=== PATIENT | female | born 1940 | race Caucasian/White ===

== ENCOUNTER → 2020-12-25 14:17 | Outpatient (CLI) | payer MEDICARE, OTHER, SELFPAY | PROVIDERS: PCP Internal Medicine; Visit Provider Specialist | DX: G47.33 Obstructive sleep apnea (adult) (pediatric) (principal) | CPT/HCPCS: G0399 ==

== ENCOUNTER 2024-09-10 16:50 | Emergency (ER) | payer MEDICARE, OTHER, SELFPAY ==
[2024-09-10 16:57] VITALS: BP 111/68; PULSE 118; RESP 18; TEMP 36.6; O2SAT 100; BMI 24.6
--- NOTE | 2024-09-10 17:29 | ED_ITS ---
<Statement entered by Chiqui Ny MD - 09/10/24 22:52> I was consulted by the MEGAN, and we discussed the complexity of the problems being addressed. I approved the treatment and management plan for this patient's care in the emergency department, thus performing a substantive portion of the medical decision making. Chiqui Ny MD, RON, FACEP Discharge Plan Disposition Patient Disposition: Home, Self-Care Condition: Good Prescriptions Prescriptions: New metoprolol succinate 100 mg tablet extended release 24 hr 100 mg PO DAILY Qty: 30 0RF amoxicillin-pot clavulanate 875-125 mg tablet 1 tab PO BID Qty: 20 0RF ofloxacin 0.3 % drops 10 drp otic (ear) BID 14 Days Qty: 10 0RF No Action omeprazole 20 mg capsule,delayed release(DR/EC) 20 mg PO DAILY insulin glargine [Lantus U-100 Insulin] 100 unit/mL solution 20 unit SQ HS Jardiance 10 mg tablet 10 mg PO DAILY valsartan 80 mg tablet 80 mg PO DAILY potassium chloride 20 mEq tablet,ER particles/crystals PO Patient Comments: TAKE ONE TABLET BY MOUTH ONCE DAILY magnesium oxide 400 mg (241.3 mg magnesium) tablet 400 mg PO DAILY bumetanide 0.5 mg tablet 0.5 mg PO DAILY rivaroxaban 20 mg tablet See Rx Instructions PO DAILY Rx Instructions: 15 mgs orally daily; metoprolol succinate 50 mg tablet extended release 24 hr 50 mg PO DAILY ascorbate calcium (vitamin C) 500 mg tablet 500 mg PO BID insulin aspart U-100 [Novolog FlexPen U-100 Insulin] 100 unit/mL (3 mL) insulin pen SQ Rx Instructions: SLIDING SCALE cholecalciferol (vitamin D3) 125 mcg (5,000 unit) capsule 125 mcg PO DAILY Zyrtec 10 mg capsule 10 mg PO DAILY PRN carbidopa-levodopa 25-100 mg tablet extended release 1 tab PO TID Qty: 270 3RF Rx Instructions: 1 tablet p.o. 3 times daily quetiapine [Seroquel] 25 mg tablet See Rx Instructions .ROUTE .COMPLEX Qty: 270 3RF Rx Instructions: 1 tab in the a.m. and 2 tablets at 5 PM memantine 10 mg tablet 10 mg PO DAILY Qty: 90 3RF Referrals Follow up/Referrals: Provider,Referral, [Primary Care Provider] - See instructions Activity Restrictions/Add. Instructions Additional Instructions/Restrictions: We have sent a new dosage of your metoprolol to your pharmacy. Your metoprolol will be 100 mg. Please do not take the 50 mg tablet take the 100 mg until you see cardiology. Please call tomorrow to make your cardiology follow-up appointment. Please keep your appointment with ear nose and throat in [place]. Please utilize the eardrops and oral medication until seen by ear nose and throat. If you have any continued new or worsening signs or symptoms follow-up with your PCP return to the ER as needed. Clinical Impressions Clinical Impression: Atrial fibrillation with rapid ventricular response, Perforation of tympanic membrane in adult Instructions Patient Instructions: DI for Tympanic Membrane Perforation-Adult Print Language Print Language: Chinese Discharge ED Provider: Chiqui Ny General Adult HPI General Chief complaint: Ear Stated complaint: BP is low, heart rate elevated, right ear bleeding Time Seen by Provider: 09/10/24 17:29 Mode of Arrival: Wheelchair Source of Information: Relative Description of Symptoms (Recalled from ER Triage Doc. by RN): Pt presents with concerns for low bp, elevated HR, and blood to her right ear. Per family they were at a neurology appointment and her bp was 96/50 and initially her HR was in the 150s but came down to 124. the blood to the right ear started 2 days ago, which is the main concern per family History of Present Illness HPI narrative: Patient presents from neurology clinic for low blood pressure and high heart rate. Patient has a long standing history of Parkinson's that may be Lewy body dementia suspected by the neurologist obstructive sleep apnea not treated with CPAP chronic A-fib with cardiac pacemaker on . Patient was following up routinely with neurology today and they noted that her blood pressure was low in the 90s and her heart rate was elevated in the 150s. Patient is asymptomatic. Additionally they report on Tuesday patient was found to have blood coming out of her right ear and there was a report of a tick potentially but no tick body was found. Patient has no pain currently but does have diminished hearing in that ear. She denies any fever chills hemoptysis hematochezia melena nausea vomiting diarrhea. Related Data Home Medications ?Medication ?Instructions ?Recorded ?Confirmed omeprazole 20 mg capsule,delayed 20 mg PO DAILY 12/06/19 09/10/24 release metoprolol succinate 50 mg 50 mg PO DAILY 12/25/20 09/10/24 tablet,extended release 24 hr ascorbate calcium (vitamin C) 500 500 mg PO BID 03/24/21 09/10/24 mg tablet insulin aspart U-100 100 unit/mL SQ 03/25/22 09/10/24 (3 mL) subcutaneous pen (Novolog FlexPen U-100 Insulin aspart) empagliflozin 10 mg tablet 10 mg PO DAILY 09/23/22 09/10/24 (Jardiance) cholecalciferol (vitamin D3) 125 125 mcg PO DAILY 01/05/23 09/10/24 mcg (5,000 unit) capsule insulin glargine 100 unit/mL 20 unit SQ HS 05/11/23 09/10/24 subcutaneous solution (Lantus U-100 Insulin) rivaroxaban 20 mg tablet See Rx Instructions PO DAILY 05/11/23 09/10/24 valsartan 80 mg tablet 80 mg PO DAILY 05/11/23 09/10/24 bumetanide 0.5 mg tablet 0.5 mg PO DAILY 09/13/23 09/10/24 magnesium oxide 400 mg (241.3 mg 400 mg PO DAILY 09/13/23 09/10/24 magnesium) tablet potassium chloride 20 mEq meq PO 09/13/23 09/10/24 tablet,extended release(part/cryst) cetirizine 10 mg capsule (Zyrtec) 10 mg PO DAILY PRN 09/10/24 09/10/24 Previous Rx's ?Medication ?Instructions ?Recorded amoxicillin 875 mg-potassium 1 tab PO BID #20 tabs 09/10/24 clavulanate 125 mg tablet carbidopa ER 25 mg-levodopa 100 mg 1 tab PO TID Parkinsonian syndrome 09/10/24 tablet,extended release #270 tabs memantine 10 mg tablet 10 mg PO DAILY #90 tabs 09/10/24 metoprolol succinate 100 mg 100 mg PO DAILY #30 tabs 09/10/24 tablet,extended release 24 hr ofloxacin 0.3 % ear drops 10 drp otic (ear) BID 14 days #10 09/10/24 mL quetiapine 25 mg tablet (Seroquel) See Rx Instructions .Route 09/10/24 .COMPLEX #270 tabs Allergies Allergy/AdvReac Type Severity Reaction Status Date / [facility] Allergy Intermediate Vomiting Verified 09/10/24 12:00 metformin Allergy Mild Vomiting Verified 09/10/24 12:00 [facility] Disclaimer: The information contained in this section may have been updated after the patient was seen, as this information can be updated by other users. Medical History Parkinsonian syndrome Suspected Lewy body disease Hypersomnolence disorder MELODY (obstructive sleep apnea) Unable to tolerate CPAP or oral appliance. Currently on positional therapy only Pacemaker Subcortical dementia Moderate subcortical dementia History of cholecystitis Surgical History History of cholecystectomy Family History Other Cancer Coronary artery disease Diabetes Heart attack Hyperlipidemia Hypertension Stroke Social History Smoking Status: Never smoker alcohol intake: never substance use type: denies use current occupational status: retired Travel in the last 8 weeks: None household members: family housing: house Other Medical History Have you received the Pneumonia Vaccine: No ROS Obtained: Yes Systems reviewed as appropriate & no additional complaints except as documented Physical Exam General General appearance: alert and in no apparent distress Respiratory Respiratory exam: Present normal lung sounds bilaterally Cardiovascular Cardiovascular exam: Present tachycardia and irregular rhythm Neurological Exam Neurological exam: Present alert, oriented X3 and CN II-XII intact Psychiatric Psychiatric exam: Present normal affect and normal mood Skin Skin exam: Present warm, dry and normal color Medical Decision Making Medical Records Medical records reviewed: Yes I reviewed the patient's medical records. Screening: Per USPSTF and CDC recommendations, given the prevalence of disease in our region, it is our hospital?s policy to screen for HIV and viral Hepatitis for all patients aged 18 and over and those with ongoing risk factors. [place]em Inquiry Pt receiving controlled substance: No Vital Signs: 09/10/24 16:57 09/10/24 18:30 09/10/24 20:45 Temperature 98 F Temperature Source Oral Pulse Rate 118 H 117 H Pulse Rate [Right] 118 H Respiratory Rate 18 Blood Pressure 113/76 109/67 L Blood Pressure [Right Arm] 111/68 Blood Pressure Mean [Right Arm] 82 Blood Pressure Source [Right Arm] Automatic Cuff Blood Pressure Position [Right Arm] Sitting 02 Sat by Pulse Oximetry 100 99 99 Lab Data Lab results reviewed: Yes I reviewed the patient's lab results. Lab Results 09/10/24 18:47: WBC 8.0, RBC 4.38, Hgb 11.5 L, Hct 36.0 L, MCV 82.2, MCH 26.3 L, MCHC 31.9, RDW 14.5, Plt Count 262, MPV 10.3, Neut % (Auto) 65.8, Lymph % (Auto) 21.8, [place] % (Auto) 10.2 H, Eos % (Auto) 1.4, Baso % (Auto) 0.4, Neut # (Auto) 5.3, Lymph # (Auto) 1.8, [place] # (Auto) 0.8, Eos # (Auto) 0.1, Baso # (Auto) 0.0, Sodium 135 L, Potassium 4.2, Chloride 96 L, Carbon Dioxide 26, Anion Gap 17.2 H, BUN 28 H, Creatinine 1.40 H, Estimated Creat Clear 26, Estimated GFR 36 L, Est GFR ( Amer) 43 L, Glucose 251 H, Lactate 1.9, Calcium 9.0, Magnesium 2.0, Total Bilirubin 0.7, AST 28, ALT 11 L, Alkaline Phosphatase 113, Total Protein 8.6 H, Albumin 4.4, Globulin 4.2 H, Albumin/Globulin Ratio 1.0 L 09/10/24 18:47 09/10/24 18:47 Orders (Tests/Meds): ED MEDICATIONS Generic Name Dose Route Start Last Admin Trade Name Freq PRN Reason Stop Dose Admin Sodium Chloride 1,000 mls @ 250 mls/hr 09/10/24 18:11 09/10/24 19:31 Sod Chlor 0.9% 1000ml Bag IV 09/10/24 22:10 250 mls/hr .Q4H ONE Administration Ofloxacin 0 ml 09/10/24 21:00 09/10/24 19:54 Ofloxacin 0.3% Otic Solution 5ml OT 10/10/24 20:59 10 drp BID DIOR Administration Discontinued Medications Generic Name Dose Route Start Last Admin Trade Name Freq PRN Reason Stop Dose Admin Amoxicillin/Clavulanate Potassium 1 each 09/10/24 19:29 09/10/24 19:53 Amoxicillin/Clavulanate Potassium 875/125mg Tablet PO 09/10/24 19:30 1 each ONCE ONE Administration Metoprolol Tartrate 5 mg 09/10/24 19:21 09/10/24 19:31 Metoprolol Tartrate 5mg/5ml Vial IV 09/10/24 19:22 5 mg ONCE ONE Administration ORDERS Category Date Time Status XR chest portable Stat Exams 09/10/24 18:10 Completed CBC w/Auto Diff [Complete Blood Count Auto Diff] Stat Lab 09/10/24 18:47 Completed CMP [Comprehensive Metabolic Panel] Stat Lab 09/10/24 18:47 Results Lactic Acid Stat Lab 09/10/24 18:47 Completed Magnesium Stat Lab 09/10/24 18:47 Results Trop I [Troponin I] Stat Lab 09/10/24 18:47 Results Troponin I Q3H Lab 09/10/24 21:15 Ordered Troponin I Q3H Lab 09/11/24 00:15 Ordered UA [Urinalysis and Microscopic] Stat Lab 09/10/24 18:12 Ordered Blood Culture Stat Micro 09/10/24 18:45 Received Medical Decision Narrative: In summary patient is a 83-year-old female who presents to the emergency department for evaluation of low blood pressure and high heart rate and bleeding from her right ear. Patient is initially normotensive on arrival here with a blood pressure of 111/68 however she is tachycardic at 118 with what appears to be A-fib RVR on the bedside monitor breathing 18 times a minute satting at 100% on room air upon arrival, afebrile at 98. Physical exam is remarkable for an external auditory canal that is full of dried blood. Patient has diminished hearing in that ear. No signs of visible trauma currently. I am unable to appreciate the tympanic membrane currently. Examination of the breath sounds visibly clear and equal bilateral to the bases with adventitious sounds heart rate is rapid irregularly irregular rate and rhythm no murmurs heard. No dependent edema noted. Patient is awake and interactive no focal neurologic deficits. She does appear to be weak currently but moves all 4 extremities. Differential diagnosis includes A-fib RVR versus external auditory canal trauma versus perforated tympanic membrane versus electrolyte abnormality etc. Initial workup will be conducted with hematologic labs twelve-lead EKG plain film chest x-ray urinalysis. Initial interventions include crystalloid bolus 5 mg labetalol IV push and ear irrigation with warm water. Initial workup reviewed by me shows her hematologic labs are nonactionable currently with exception of a slightly elevated creatinine of 1.4 and a GFR diminished at 36 do not have a previous reference to know if this is new or chronic. Thank him chest x-ray shows no acute processes.. Upon repeat evaluation after right ear canal irrigation I am able to appreciate what appears to be a perforated tympanic membrane on the right. No evidence of purulence. Patient was refractory to push dose of labetalol however after fluid bolus heart rates come down under 120 and blood pressure 109/67.. Given this I had a shared decision-making discussion with the patient's daughter who is her power of engineering mechanic about her GARCIA presentation and management. They are comfortable going home and changing her metoprolol dose to 100 mg twice daily with close follow-up with cardiology as patient is asymptomatic and does not know that she is having a rapid heart rate. They will get a vital sign monitor so they can know what her heart rate and oxygen saturation are.. They will hold the 50 mg metoprolol dose. Patient was given a prescription for Augmentin and ofloxacin drops with first doses given here. Patient already has a appointment with ear nose and throat in [place] where she lives. If she has any continued new or worsening signs or symptoms she will follow-up closely with her PCP return to the closest ER as needed. Critical Care Critical Care Time Critical Care Time: Yes Attestation: On 09/10/24, the high probability of a clinically significant, sudden or life threatening deterioration of the following system(s) required my full and direct attention, intervention and personal management. The time I documented below is in addition to time spent performing reported procedures but includes the following listed in this critical care notation. Total Time Total Critical Care Time: 35
--- NOTE | 2024-09-10 18:10 | XR_ITS ---
PROCEDURE INFORMATION: Exam: XR Chest Exam date and time: 09/10/2024 6:22 PM Age: 83 years old Clinical indication: Other: Tachycardia TECHNIQUE: Imaging protocol: Radiologic exam of the chest. Views: 1 view. COMPARISON: No relevant prior studies available. FINDINGS: Lungs: Unremarkable. No consolidation. Pleural spaces: Unremarkable. No pleural effusion. No pneumothorax. Heart/Mediastinum: Unremarkable. No cardiomegaly. Bones/joints: Unremarkable. IMPRESSION: No acute findings.
--- NOTE | 2024-09-10 18:21 | PC.NURSE ---
XR AT BEDSIDE
[2024-09-10 18:30] VITALS: BP 113/76; PULSE 118; O2SAT 99
--- NOTE | 2024-09-10 18:42 | ECG_ITS ---
APPROVED REPORT Exam: Resting ECG HR:117 bpm ECG Measurements Heart Rate 117 AXES QRSd 117 QRS -12 QT 315 T 165 QTc 385 Conclusion ATRIAL FLUTTER/TACHYCARDIA WITH RAPID VENTRICULAR RESPONSE LOW QRS VOLTAGE IN PRECORDIAL LEADS [QRS DEFLECTION < 1.0 mV IN CHEST LEADS] POSSIBLE ANTERIOR MYOCARDIAL INFARCTION , PROBABLY OLD [30 ms Q WAVE IN V3/V4, OR R < 0.2 mV IN V4] MODERATE T-WAVE ABNORMALITY, CONSIDER LATERAL ISCHEMIA [-0.1+ mV T-WAVE IN I/aVL/V5/V6] ABNORMAL ECG UNCONFIRMED REPORT Electronically signed by : Lester Ny, 09/10/2024 23:01:04
[2024-09-10 18:56] LABS: Basophils % 0.4 % (0.1-2.0); Eosinophils # 0.1 K/mm3 (0.0-0.4); Eosinophils % 1.4 % (0.1-12.0); Hemoglobin 11.5 g/dL (12.2-16.2); Lymphocytes # 1.8 K/mm3 (0.7-4.5); Lymphocytes % 21.8 % (10-50); Mean Corpuscular HGB Conc 31.9 g/dL (31.8-35.4); Mean Corpuscular Hemoglobin 26.3 pg (27.0-31.2); Mean Corpuscular Volume 82.2 fl (81-99); Mean Platelet Volume 10.3 fl (7.4-10.4); Monocytes # 0.8 K/mm3 (0.1-1.0); Monocytes % 10.2 % (1.7-9.3); Neutrophils # 5.3 K/mm3 (1.8-7.8); Neutrophils % 65.8 % (37.0-80.0); Nucleated Red Blood Cells # 0 10^3/uL; Nucleated Red Blood Cells % 0 %; Platelet Count 262 K/mm3 (142-424); Red Blood Count 4.38 M/mm3 (4.20-5.40); Red Cell Distribution Width 14.5 % (11.5-17.5); Red Cell Distribution Width-SD 43.4 fL
[2024-09-10 19:04] LABS: Albumin Level 4.4 g/dl (3.5-5.0); Chloride 96 mmol/L (98-107); Potassium 4.2 mmoL/L (3.5-5.1); Sodium 135 mmol/L (136-145)
--- NOTE | 2024-09-10 19:04 | PC.NURSE ---
gave shift report to sean corado
[2024-09-10 19:07] LABS: Alanine Aminotransferase 11 U/L (12-78); Alkaline Phosphatase 113 U/L (38-126); Anion Gap 17.2 mEq/L (5-15); Aspartate Amino Transferase 28 U/L (14-36); Bilirubin,Total 0.7 mg/dl (0.2-1.3); Blood Urea Nitrogen 28 mg/dl (7-17); Carbon Dioxide 26 mmol/L (22.0-30.0); Creatinine Clearance Estimated 26 mL/min (50-200); Estimated Glomerular Filt Rate 36 ml/min (>60); GFR (African American) 43 ML/MIN (>60); Globulin 4.2 g/dL (1.3-3.2); Glucose 251 mg/dl (74-100); Total Protein,Serum 8.6 g/dl (6.3-8.2)
[2024-09-10 19:27] LABS: Lactic Acid 1.9 mmol/L (0.7-2.1)
[2024-09-10] MEDS: METOPROLOL TARTRATE 5MG/5ML VIAL 5 MG IV (19:31)
[2024-09-10] MEDS: 0.9 % SODIUM CHLORIDE 1000ML 1,000 ML 250 ML IV (19:31)
[2024-09-10] MEDS: AMOXICILLIN/CLAVULANATE POTASSIUM 875/125MG TABLET 1 EACH PO (19:53)
[2024-09-10] MEDS: OFLOXACIN 0.3% OTIC SOLUTION 5ML OT (19:54)
[2024-09-10 20:45] VITALS: BP 109/67; PULSE 117; O2SAT 99
[2024-09-10 21:44] VITALS: BP 95/60; PULSE 117; RESP 17; TEMP 36.8; O2SAT 99
[2024-09-10 22:07] LABS: Troponin I < 0.01 ng/ml (0.00-0.034)
== END 2024-09-10 21:50 | disposition home or self-care (01) ==
PROVIDERS: Physician Assistant; Emergency Provider Student in an Organized Health Care Education/Training Program
DX: I48.91 Unspecified atrial fibrillation (principal); I95.9 Hypotension, unspecified; H72.91 Unspecified perforation of tympanic membrane, right ear
CPT/HCPCS: 71045; 80053; 83605; 83735; 84484; 85025; 87040; 93005; 96361; 96374; 99291; J7030